=== PATIENT | female | born 1980 | race American Indian/Alaskan Native ===

== ENCOUNTER 2017-03-18 03:44 | Inpatient (IN) | payer OTHER ==
[2017-03-18] MEDS ORDERED: Penicillin G 5 Million Unit Vial IVPB ONE (05:03)
[2017-03-18] MEDS ORDERED: Lactated Ringer's 1,000 ML IV SCH (05:15)
[2017-03-18 06:03] LABS: BASO # 0.1 K/uL (0.0-0.2); BASO % 0.6 % (0.0-2.0); EOS # 0.3 K/uL (0.0-0.7); HEMATOCRIT 30.4 % (34.0-47.0); LYMPH # 1.7 K/uL (1.0-4.3); LYMPH % 18.1 % (20.0-40.0); MEAN CORPUSCULAR HEMOGLOBIN 21.9 pg (27.0-31.0); MEAN CORPUSCULAR HGB CONC 31.6 g/dL (33.0-37.0); MEAN PLATELET VOLUME 9.8 fL (7.2-11.7); MONO # 0.7 K/uL (0.0-0.8); MONO % 7.9 % (0.0-10.0); RED CELL DISTRIBUTION WIDTH 15.2 % (11.5-14.5); WHITE BLOOD COUNT 9.3 K/uL (4.8-10.8)
[2017-03-18 06:06] LABS: MEAN CELL VOLUME 69.4 fL (81.0-99.0)
[2017-03-18 06:08] LABS: RBC URINE 3 /hpf (0-3); URINE BILIRUBIN NEGATIVE (NEGATIVE); URINE BLOOD NEGATIVE (NEGATIVE); URINE COLOR Yellow (YELLOW); URINE GLUCOSE (UA) NORMAL (Normal); URINE KETONE NEGATIVE (NEGATIVE); URINE LEUKOCYTE ESTERASE TRACE Leu/uL (Negative); URINE PROTEIN 1+ mg/dL (NEGATIVE); URINE UROBILINOGEN NORMAL mg/dL (0.2-1.0); WBC URINE 10 /hpf (0-5)
[2017-03-18 06:32] LABS: CHLORIDE 103 mmol/L (98-107)
[2017-03-18 06:33] LABS: SODIUM 133 mmol/L (132-148)
[2017-03-18 06:35] LABS: ALB/GLOB RATIO 0.9 (1.0-2.1); ALKALINE PHOSPHATASE 192 U/L (38-126); AST/SGOT 28 U/L (14-36); BILIRUBIN,TOTAL 0.8 mg/dL (0.2-1.3); CARBON DIOXIDE 22 mmol/L (22-30); GFR AFRICAN-AMERICAN > 60
[2017-03-18 06:36] LABS: ALT/SGPT 12 U/L (9-52); BLOOD UREA NITROGEN 4 mg/dL (7-17); CALCIUM 8.5 mg/dl (8.6-10.4); GLUCOSE,RANDOM 86 mg/dL (65-105)
[2017-03-18 07:11] LABS: POTASSIUM 4.2 mmol/L (3.6-5.2)
[2017-03-18] MEDS ORDERED: Bupivacaine HCl 0.25% PF (10 ml) Inj ONE (07:54)
[2017-03-18] MEDS ORDERED: Bupivacaine 0.125%/FentaNYL 200 ML EPI ONE (07:54)
[2017-03-18] MEDS ORDERED: Oxytocin 30 UNIT 30 UNITS/500 ML BAG IV ONE (09:01)
[2017-03-18] MEDS ORDERED: Oxytocin 30 UNIT 30 UNITS/500 ML BAG IV PRN (09:04)
[2017-03-18] MEDS ORDERED: Oxytocin 10 Units/ml Inj ONE (11:38)
[2017-03-18] MEDS ORDERED: Oxytocin 10 Units/ml Inj IM ONE (11:45)
[2017-03-18] MEDS ORDERED: Oxytocin 10 Units/ml Inj IV ONE (11:45)
[2017-03-18] MEDS ORDERED: Lidocaine 2% Inj (20ml) ONE (11:46)
[2017-03-18 11:59] LABS: DRAW SITE CORD
[2017-03-18] MEDS ORDERED: Oxycodone/Acetaminophen 5/325 mg Tab ONE (12:39)
[2017-03-18] MEDS ORDERED: Oxycodone/Acetaminophen 5/325 mg Tab PO ONE (12:45)
[2017-03-18] MEDS ORDERED: Acetaminophen-Codeine 300/30 mg Tab PO PRN (13:10)
--- NOTE | 2017-03-18 15:38 | OBADHP ---
Datetime: 03/18/2017 05:09 Admit Comment, IP Provider: chief complaint-contractions HPI 36 y/o at 38 weeks and 3 days gestation with c/o contractions since last 2 days.states th at contractions ebcame more regular and strong today.Denies vaginal bleeding or loss of fluid course - care with dr Guadalupe; BERNICE; hypertension-was on lisinopril prior to .today reports that she has been intermittently taking lisinipril during .She took a tab 2 d ays ago Gestational diabetes-diet controlled as per patient; PMH hypertension PSH denies OBGYN HX ; NVDX2 Social hx denies alcohol, trobacco or drug use Exam see exam section A/P Patient at 38.3 wga in labor. 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 .GBS unknowsn.patient non-compliant -admit -see orders Pelvic Type - PN: Adequate Extremities - PN: Normal Abdomen - PN: Normal Back - PN: Normal Lungs - PN: Normal Heart - PN: Normal Neurologic - PN: Normal General - PN: Normal Weight - Estimated: 3400 Presentation-Admit: Vertex Contraction Comments Provider: irregular Gestation - Est Wks by US: 38.3 IP Hx Assessment: The History has been Reviewed and is Current Vital Signs Provider: Reviewed; Within Normal Limits IP Chief Complaint: Uterine contractions FHR Category Provider Fetus A: Category I Dilatation, Provider: 4-5 Effacement, Provider: 80 Station, Provider: -3 Genitourinary Exam: Normal DTRs - PN: Normal EGA AdmitDate IP: 38.3 IP Adm Impression: Term, intrauterine ; Active labor IP Admit Plan: Admit to unit; Initiate labor protocol
--- NOTE | 2017-03-18 15:38 | OBPN ---
Datetime: 03/18/2017 07:45 IP Progress Plan: Continue present management; Augmentation; Anesthesia consult; Anticipate Vaginal Delivery Membranes, Provider: Intact Contraction Comments Provider: 4-5 IP Progress Note Comment: Patient received in bed in LDR#4: requesting pain medications. Had attempt ed epidural earlier, unsuccessful. (+)FM V.E.: as above. Assessment: 36 yo P2, 38w 3d, active labor; GBS unknown, on penicillin. Chr HTN, GDM - questionab le compliance with medications and control. Category1 tracing. Risks and possible side effects of IV narcotic on were discussed, in case of rapid delivery after its administration. To this end, patient receptive to attempting epidural again. BP noted - wnl; pain related. Patient otherwise, cli nically stable. Plan: 1) reconsult anesthesia 2) Continue present management 3) Anticipate vaginal delivery Dilatation, Provider: 6-7 Effacement, Provider: 80 Station, Provider: -3 Datetime: 03/18/2017 05:09 Gestation - Est Wks by US: 38.3 Weight - Estimated: 3400 Presentation-Admit: Vertex Vital Signs Provider: Reviewed; Within Normal Limits FHR Category Provider Fetus A: Category I
[2017-03-18 19:54] LABS: BASO % 0.3 % (0.0-2.0); EOS % 0.3 % (0.0-4.0); HEMATOCRIT 30.8 % (34.0-47.0); LYMPH # 1.1 K/uL (1.0-4.3); LYMPH % 5.9 % (20.0-40.0); MEAN CORPUSCULAR HEMOGLOBIN 21.5 pg (27.0-31.0); MEAN CORPUSCULAR HGB CONC 30.7 g/dL (33.0-37.0); MEAN PLATELET VOLUME 9.8 fL (7.2-11.7); MONO # 0.9 K/uL (0.0-0.8); MONO % 4.9 % (0.0-10.0); PLATELET COUNT 168 K/uL (130-400); WHITE BLOOD COUNT 18.6 K/uL (4.8-10.8)
--- NOTE | 2017-03-18 20:50 | OBDS ---
DELIVERY PERSONNEL Delivery Doctor: Juan Elise MD Biscuit Machine Operator: Miladys Bruce RN MATERNAL INFORMATION Delivery Anesthesia: Local; Epidural Medications in Delivery: [id number] IMx1; [id number];Cytotec 1000mcg rectally Estimated Blood Loss (ml): 1000 Placenta Cultured: Yes Maternal Complications: None RN Comments: Liveborn Baby Boy. 8-8. Pitocin 86mbbrhg8 dose IM @1142am; Cytotec 1000mcg rectal ly by @1147AM; Hemabate 250mcg IMx1 dose @1150 Provider Comments: Vaginal delivery of live male infant, ANNA position, Apgars 8/8, weight 8lb 13 oz. Thick meconium liquor; peds present at delivery. Cord pH sent. 7.25, base excess -12.7 After spontaneous delivery of placenta, grossly intact, 3 vessels present. heavy uterine bleeding noted, Uterus boggy. 10 units pitocin administered IM (peripheral line had come out while patient was pushing during delivery). In addition, 1,000 micrograms cytotec administered per rectum, and 250 alexandre rograms hemabate administered IM. Uterus finally contracted and firm; bleeding abated. Cervix, vagina, perineum inspected - no extensions; repair as above. Patient remained awake, alert, conversant throughout delivery, repair and all manouvres. Mother an d infant bonded; transferred to nursery in stable condition. LABOR SUMMARY EDC: 03/29/2017 00:00 No. Babies in Womb: 1 Attempted: No Labor Anesthesia: Epidural LABOR INFORMATION Reason for Induction: Not Applicable Onset of Labor: 03/18/2017 05:00 Complete Dilatation: 03/18/2017 11:00 Oxytocin: Augmentation Group B Beta Strep: Not Done Antibiotics # of Doses: 2 Antibiotics Time of Last Dose: Pen G 2.5 MU @0931 Steroids Given: None Reason Steroids Not Administered: Not Applicable MEMBRANES Membranes Rupture Method: Artificial Rupture of Membranes: 03/18/2017 10:59 Length of Rupture (hrs): 0.62 Amniotic Fluid Color: Heavy Meconium Amniotic Fluid Amount: Moderate Amniotic Fluid Odor: Normal STAGES OF LABOR Stage 1 hrs: 6 Stage 1 min: 0 Stage 2 hrs: 0 Stage 2 min: 36 Stage 3 hrs: 0 Stage 3 min: 6 Total Time in Labor hrs: 6 Total Time in Labor min: 42 VAGINAL DELIVERY Laceration Extension: Second Degree Laceration Type: Perineal Other Laceration: 1st degree labial 2nd degree perineal Laceration Repair: Yes Laceration Repair Note: 2-0 and 2-30 chromic, in routine fasion Hemostasis assured Initial Vag Sponge Count: 10 Final Vag Sponge Count: 10 Initial Vag Sharps Count: 3 Final Vag Sharps Count: 3 Sponge Count Correct: Yes; Vaginal Sweep Performed Sharps Count Correct: Yes Count Comment: 2 sutures with needles plus 1 needle Correct x 2 BABY A INFORMATION Infant Delivery Date/Time: 03/18/2017 11:36 Method of Delivery: Vaginal Born in Route : No : N/A Forceps: N/A Vacuum Extraction: N/A Shoulder Dystocia : No SHOULDER DYSTOCIA BABY A Infant Delivery Date/Time: 03/18/2017 11:36 PRESENTATION/POSITION BABY A Presentation: Cephalic Cephalic Presentation: Vertex Vertex Position: Right Occipital Anterior Breech Presentation: N/A PLACENTA INFORMATION BABY A Placenta Delivery Time : 03/18/2017 11:42 Placenta Method of Delivery: Spontaneous Placenta Status: Delivered SCORES BABY A Heart Rate 1 min: >100 bpm Resp Effort 1 min: Slow, Irregular Reflex Irritability 1 min: Cough or Sneeze or Pulls Away Muscle Tone 1 min: Active Motion Color 1 min: Body [place], Extremities Blue Resuscitation Effort 1 min: N/A SCORE 1 MIN: 8 Heart Rate 5 min: >100 bpm Resp Effort 5 min: Slow, Irregular Reflex Irritability 5 min: Cough or Sneeze or Pulls Away Muscle Tone 5 min: Active Motion Color 5 min: Body [place], Extremities Blue Resuscitation Effort 5 min: N/A SCORE 5 MIN: 8 INFORMATION BABY A Gestational Age at Delivery: 38.3 Gestational Status: Term Outcome : Liveborn Infant Condition : Stable Sex: Male IDENTIFICATION/MEDS BABY A ID Band Number: [id number] ID Band Location: Left Leg; Left Arm Sensor Applied: Yes Sensor Number: [id number] Sensor Location : Cord Clamp Vitamin K Given : Not Given Erythromycin Given: Not Given WEIGHT/LENGTH BABY A Birthweight (gms): 3985 Infant Weight (lb): 8 Infant Weight (oz): 13 Length Inches: 20.50 Length cms: 52.1 CORD INFORMATION BABY A No. Cord Vessels: 3 Nuchal Cord : N/A Infant Cord pH Baby Arterial: 7.25 Cord Blood Taken: Yes Infant Suction: Mouth; Nose ASSESSMENT BABY A Infant Complications: None Physical Findings at Delivery: Within Normal Limits Respirations: Nasal Flaring Procedures Rn/ALS Called : Yes Infant Care By: /Arlene SALAZAR Transferred To: Nursery
[2017-03-18 21:22] LABS: NEUTROPHIL 86 % (50-75); TOTAL CELLS COUNTED 100
[2017-03-18 21:23] LABS: LARGE PLATELETS PRESENT
[2017-03-19 08:05] VITALS: RESP 20
[2017-03-19 09:03] LABS: BASO % 0.2 % (0.0-2.0); EOS # 0.1 K/uL (0.0-0.7); EOS % 0.9 % (0.0-4.0); HEMATOCRIT 26.7 % (34.0-47.0); LYMPH # 1.9 K/uL (1.0-4.3); LYMPH % 13.7 % (20.0-40.0); MEAN CORPUSCULAR HEMOGLOBIN 21.9 pg (27.0-31.0); MEAN CORPUSCULAR HGB CONC 31.3 g/dL (33.0-37.0); MEAN PLATELET VOLUME 9.8 fL (7.2-11.7); MONO # 0.8 K/uL (0.0-0.8); MONO % 5.9 % (0.0-10.0); RED CELL DISTRIBUTION WIDTH 15.2 % (11.5-14.5); WHITE BLOOD COUNT 14.2 K/uL (4.8-10.8)
[2017-03-19] MEDS: Multiple Vitamins Tab PO SCH (09:10)
[2017-03-19 16:22] VITALS: O2SAT 99
--- NOTE | 2017-03-19 21:01 | OBPPN ---
Datetime: 03/19/2017 20:47 PP Pain Prov: Within normal limits PP Nausea Prov: Denies PP Flatus Prov: Yes PP BM Prov: No PP Breasts Prov: Normal PP Heart Prov: Normal PP Lungs Prov: Normal PP Abdomen/Uterus Prov: Normal PP Lochia Prov: Normal PP Vulva/Perineum Prov: Normal PP CVA Tenderness Prov: Normal PP Extremities Prov: Normal PP C/S Incision Prov: Not Applicable PP Progress Prov: Normal PP Comments Phys Exam Prov: Skin: warm, dry, intact Abdomen: Obese. Soft. Non distended. Fundus firm, mobile, approx 2 FB below umbilicus. Mild lochia rubra All other systems reviewed and are negative PP Impression Prov: Normal progression PP Plan Prov: Continue present management PP Progress Note Prov: Patient was seen and evalauted earlier this morning: received in room 459, am bulating and in very good spirits. Attempting to breastfeed exclusively. Denies headaches, lightheade dness, dizziness, palpitations, shortness of breath. Denies nausea, vomiting; voiding without difficu lty. P.E.: as above. Obese in NAD. Awake, alert, oriented to time, person and place. Pleasant and coope rative. - PPD#1 H/H 8.3/26.7. Rh(+) Assessment: PPD#1, 36 y.o. P3, S/P . Chr HTN, was on lisinopril during . Not on any an ti-hypertensives at this time; BPs have been wnl. Anemia noted - stable; patient is asymptomatic. Dr dyole screen positive for marijuana; patient has been seen by [facility]. Patient admitted to smoking marijuan a in recent days due to intractable vomiting, non responsive to pharmaceutical anti-emetics. Patient otherwise clinically stable. Plan: 1) As above. 2) Possible discharge home 03/20/17 Vital Signs Provider PP: Reviewed
[2017-03-20 07:49] LABS: BASO % 0.4 % (0.0-2.0); EOS # 0.2 K/uL (0.0-0.7); EOS % 1.8 % (0.0-4.0); HEMATOCRIT 29.1 % (34.0-47.0); LYMPH # 2.2 K/uL (1.0-4.3); LYMPH % 19.3 % (20.0-40.0); MEAN CELL VOLUME 70.9 fL (81.0-99.0); MEAN CORPUSCULAR HEMOGLOBIN 21.9 pg (27.0-31.0); MEAN CORPUSCULAR HGB CONC 30.9 g/dL (33.0-37.0); MEAN PLATELET VOLUME 9.9 fL (7.2-11.7); MONO # 0.7 K/uL (0.0-0.8); MONO % 5.8 % (0.0-10.0); NRBC % 0.1 % (0.0-2.0); RED CELL DISTRIBUTION WIDTH 15.4 % (11.5-14.5); WHITE BLOOD COUNT 11.6 K/uL (4.8-10.8)
[2017-03-20 07:55] VITALS: BP 137/86; PULSE 75; TEMP 98.2
--- NOTE | 2017-03-20 08:39 | OBPPN ---
Datetime: 03/20/2017 08:29 PP Pain Prov: Within normal limits PP Nausea Prov: Denies PP Flatus Prov: Yes PP BM Prov: Yes PP Breasts Prov: Normal PP Heart Prov: Normal PP Lungs Prov: Normal PP Abdomen/Uterus Prov: Normal PP Lochia Prov: Normal PP Vulva/Perineum Prov: Normal PP CVA Tenderness Prov: Normal PP Extremities Prov: Normal PP C/S Incision Prov: Not Applicable PP Progress Prov: Normal PP Comments Phys Exam Prov: GEN NAD AAO x 3 RESP: CTAB?l CVS: RRR, +S1/S2 ABD: soft, NT/ND, +BS, no guarding, no rebound tenderness, no rigidity FUNDUS: Firm, below lvel of umbilicus LOCHIA: minimal, non foul smelling EXT: no calf tenderness, negative ursula's sign PP Impression Prov: Normal progression PP Plan Prov: Continue present management; Discharge PP Progress Note Prov: Pt seen and examined and reports pain controlled with motrin. Pt reports ambu ating, voiding, passing flatus, +BM. pt reports light vaginal bleeding. Pt denies any ligthheadness, dizzynes, CP, SOB. pt infomred UDS psoitive for marijuna and also baby drug scren positive. pt infomr ed social work/ [facility] to be contacted. Pt is cleared for discharge but will need to speak to pediatric miguelangel re: dspostion of baby. Pt denies hx of HTN and states was not on antihypertensives regularly, in duration of took medication less than 5 times. pt denies any headaches, blurry vision< RUQ/ epigastric pain. VSS PE see above a/p s/p PPD #2 stable for discharge -pt advsied f/u PCP 1 week for bp check: preelcmapitc precations given to patient, if headaches, b lurry vision, ruq/peistri pain, no tlfeeing well go to nearest ER -dc home -pt advsied f/u peidatricin re: dispostion of bay -advised nothign in vagina, no sex, no douching, no tampon x 6 weeks Vital Signs Provider PP: Reviewed; Within Normal Limits
--- NOTE | 2017-03-20 08:39 | OBDCSUM ---
Datetime: 03/20/2017 08:38 Discharged to, Provider: Home Disch Instr Activity: Normal activity Disch Instr Diet: Regular Discharge Instructions, Provider: Routine instructions given Discharge Diagnosis, Provider: Term Delivered Discharge Time: 03/20/2017 08:38 Disch Referrals: None Contraception discussed, Prov: Yes Disch Activity Restrictions: No sexual activity; Nothing in vagina - [place], tampons, douche Discharge Diagnosis Prov Other: + Marijuna uds
[2017-03-20] MEDS: Multiple Vitamins Tab PO SCH (09:11)
== END 2017-03-20 10:20 | disposition home or self-care (01) | DRG 372 ==
LOC: C.EROB 03:44 → C.4D 05:12 → C.4M 14:00
PROVIDERS: ADMIT Student in an Organized Health Care Education/Training Program; ATTEND Student in an Organized Health Care Education/Training Program
PROC: 10E0XZZ Delivery of Products of Conception, External Approach (ICD-10-PCS; principal; 2017-03-18)
PROC: 0KQM0ZZ Repair Perineum Muscle, Open Approach (ICD-10-PCS; 2017-03-18)
PROC: 10907ZC Drainage of Amniotic Fluid, Therapeutic from Products of Conception, Via Natural or Artificial Opening (ICD-10-PCS; 2017-03-18)
DX: O24.429 Gestational diabetes mellitus in childbirth, unspecified control (principal); O10.92 Unspecified pre-existing hypertension complicating childbirth; O98.82 Other maternal infectious and parasitic diseases complicating childbirth; O77.0 Labor and delivery complicated by meconium in amniotic fluid; O70.1 Second degree perineal laceration during delivery; O09.523 Supervision of elderly multigravida, third trimester; Z3A.38 38 weeks gestation of pregnancy; Z37.0 Single live birth

== ENCOUNTER 2017-06-11 15:46 | Emergency (ER) | payer OTHER ==
[2017-06-11 15:56] VITALS: RESP 18; O2SAT 99
--- NOTE | 2017-06-11 17:39 | RAD ---
HISTORY: abdominal pain, constipation COMPARISON: No prior. FINDINGS: BOWEL: Mild constipation is noted more prominent at the right colon. No obstruction. No free air. BONES: Normal. OTHER FINDINGS: None. IMPRESSION: Mild constipation. No radiographic evidence of small bowel obstruction.
[2017-06-11 17:41] LABS: BASO # 0.1 K/uL (0.0-0.2); BASO % 0.7 % (0.0-2.0); EOS # 0.2 K/uL (0.0-0.7); HEMATOCRIT 35.6 % (34.0-47.0); LYMPH # 2.2 K/uL (1.0-4.3); LYMPH % 25.5 % (20.0-40.0); MEAN CORPUSCULAR HEMOGLOBIN 20.8 pg (27.0-31.0); MEAN CORPUSCULAR HGB CONC 31.1 g/dL (33.0-37.0); MONO # 0.5 K/uL (0.0-0.8); MONO % 5.8 % (0.0-10.0); NRBC % 0.1 % (0.0-2.0); RED CELL DISTRIBUTION WIDTH 15.2 % (11.5-14.5); WHITE BLOOD COUNT 8.8 K/uL (4.8-10.8)
[2017-06-11 17:43] LABS: MEAN CELL VOLUME 66.8 fL (81.0-99.0)
[2017-06-11 17:46] LABS: RBC URINE 1 /hpf (0-3); URINE BACTERIA RARE (<OCC); URINE BILIRUBIN NEGATIVE (NEGATIVE); URINE BLOOD NEGATIVE (NEGATIVE); URINE COLOR Yellow (YELLOW); URINE GLUCOSE (UA) NORMAL (Normal); URINE KETONE TRACE mg/dL (NEGATIVE); URINE LEUKOCYTE ESTERASE TRACE Leu/uL (Negative); URINE PROTEIN NEGATIVE (NEGATIVE); URINE UROBILINOGEN NORMAL mg/dL (0.2-1.0); WBC URINE 11 /hpf (0-5)
[2017-06-11 17:54] LABS: CHLORIDE 104 mmol/L (98-107); POTASSIUM 3.7 mmol/L (3.6-5.2); SODIUM 142 mmol/L (132-148)
[2017-06-11 17:56] LABS: GFR AFRICAN-AMERICAN > 60
[2017-06-11 17:57] LABS: BLOOD UREA NITROGEN 14 mg/dL (7-17); CALCIUM 9.1 mg/dl (8.6-10.4); CARBON DIOXIDE 27 mmol/L (22-30); GLUCOSE,RANDOM 123 mg/dL (65-105)
--- NOTE | 2017-06-11 18:45 | C.PDOC ---
History Of Present Illness 36 year old female presents to the ED with complaints of intermittent dull and throbbing headache described as mostly frontal and radiates to the back that is for one week that waxes and wanes. Patient is two months post and began to notice blurry vision, general body pain, abdominal cramping, and constipation. She has not been sleeping as much due to pain and has photophobia and phonophobia. Patient went to pharmacy to check blood pressure and it was high. She was instructed to come to ED for evaluation. Patient denies nausea, vomiting, or fever. Time Seen by Provider: 06/11/17 16:58 Chief Complaint (Nursing): Abdominal Pain History Per: Patient History/Exam Limitations: no limitations Onset/Duration Of Symptoms: Waxing/Waning (for one week ), Intermittent Episodes Current Symptoms Are (Timing): Still Present Severity: Severe Pain Scale Rating Of: 7 Quality: Dull, Other (throbbing ) Associated Symptoms: Photophobia, Blurred Vision. denies: Nausea, Vomiting Recent travel outside of the [place]: No Past Medical History Reviewed: Historical Data, Nursing Documentation, Vital Signs Vital Signs: Last Vital Signs Temp 98.7 F 06/11/17 18:46 Pulse 75 06/11/17 18:46 Resp 18 06/11/17 18:46 BP 125/79 06/11/17 18:46 Pulse Ox 99 06/11/17 20:36 - Medical History PMH: HTN (not on any meds per patient) - [facility] Procedures DELIVERY OF PRODUCTS OF CONCEPTION, EXTERNAL APPROACH (03/18/17) DRAINAGE OF AMNIOTIC FL, THERAP FROM POC, VIA OPENING (03/18/17) REPAIR PERINEUM MUSCLE, OPEN APPROACH (03/18/17) Family History: States: Unknown Family Hx - Social History Hx Tobacco Use: No Hx Alcohol Use: No Hx Substance Use: No - Immunization History Hx Tetanus Toxoid Vaccination: No Hx Influenza Vaccination: No Hx Pneumococcal Vaccination: No Review Of Systems Constitutional: Positive for: Other (high blood pressure and general bodyh pain ). Negative for: Fever, Chills Eyes: Positive for: Other (photophobia and blurry vision ) ENT: Positive for: Other (phonophobia ) Cardiovascular: Negative for: Chest Pain, Palpitations Respiratory: Negative for: Cough, Shortness of Breath Gastrointestinal: Positive for: Abdominal Pain (cramping ), Constipation. Negative for: Nausea, Vomiting, Diarrhea Neurological: Positive for: Headache. Negative for: Weakness, Numbness Physical Exam - Physical Exam Appears: Non-toxic, No Acute Distress Skin: Warm, Dry Head: Atraumatic Eye(s): bilateral: Normal Inspection, PERRL, EOMI Oral Mucosa: Moist Neck: Supple Chest: Symmetrical, No Deformity Cardiovascular: Rhythm Regular, No Murmur Respiratory: Normal Breath Sounds, No Rales, No Rhonchi, No Wheezing Gastrointestinal/Abdominal: Soft, No Tenderness, No Distention, No Guarding, No Rebound Extremity: Normal ROM, No Tenderness Neurological/Psych: Oriented x3, Normal Speech, Normal Cognition, Normal Motor, Normal Sensation ED Course And Treatment - Laboratory Results Result Diagrams: 06/11/17 17:37 06/11/17 17:37 O2 Sat by Pulse Oximetry: 99 (room air ) - Other Rad Abdomen flat plate X-Ray: Viewed By Me, Read By Radiologist Interpretation: FINDINGS: BOWEL: Mild constipation is noted more prominent at the right colon. No obstruction. No free air. BONES: Normal. OTHER FINDINGS: None. IMPRESSION: Mild constipation. No radiographic evidence of small bowel obstruction. Progress Note: EKG, UA, abdomen flat plate, and blood work were ordered. Patient was given motrin and tylenol. Medical Decision Making Medical Decision Making: Patient feeling better Disposition Counseled Patient/Family Regarding: Studies Performed, Need For Followup, Rx Given - Disposition Disposition: HOME/ ROUTINE Disposition Time: 18:43 Condition: STABLE Additional Instructions: Please follow up with your doctor. Prescriptions: Ibuprofen [Motrin] 600 mg PO TID #15 tab Instructions: Constipation (ED), High Fiber Diet (ED), Acute Headache (ED) Forms: General Discharge Instructions, [facility] (Georgian) - POA Present On Arrival: None - Clinical Impression Clinical Impression: Abdominal pain, Constipation, Headache - Scribe Statement The provider has reviewed the documentation as recorded by the Scribray Beauchamp All medical record entries made by the Scribe were at my direction and personally dictated by me. I have reviewed the chart and agree that the record accurately reflects my personal performance of the history, physical exam, medical decision making, and the department course for this patient. I have also personally directed, reviewed, and agree with the discharge instructions and disposition.
[2017-06-11 18:47] VITALS: BP 125/79; PULSE 75; TEMP 98.7
--- NOTE | 2017-06-14 22:35 | CARD ---
APPROVED REPORT EKG Measurement Heart [id number] TN [id number] <Conclusion> Normal sinus rhythm Normal ECG
== END 2017-06-11 18:54 | disposition home or self-care (01) ==
LOC: C.ER 15:46
DX: R51 Headache (principal); K59.00 Constipation, unspecified; R10.9 Unspecified abdominal pain; I10 Essential (primary) hypertension